=== PATIENT | male | born 2000 | race Caucasian/White ===

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

== ENCOUNTER 2020-05-08 15:41 | Emergency (ER) | payer SELFPAY ==
[2020-05-08 15:54] VITALS: BP 105/66; PULSE 57; RESP 18; TEMP 36.4; O2SAT 100
--- NOTE | 2020-05-08 16:14 | ED.EYEPROB ---
HPI - Eye Problem General Chief complaint: Eye Problems Stated complaint: left eye pain History of Present Illness HPI Narrative: This is a 19-year-old comes in complaining of left pain and swelling. According to patient he was mowing today earlier and he felt something in his eye started to rub his eye flushed his eye out at work. Patient states his eye continued to be irritated and to swell was not able to work the day out that he would go home and rest. Patient states that he woke up because his eye continue to swell was irritated and was hurting afraid that something may be in his eye. Related Data Allergies Allergy/AdvReac Type Severity Reaction Status Date / Time No Known Allergies Allergy Verified 05/08/20 15:58 Review of Systems Review of Systems: Narrative: CONSTITUTIONAL: Denies fever, chills, or sweats. EYES: Reports visual changes, redness, or discharge. ENT: Denies rhinorrhea, congestion, sore throat, or otalgia. CARDIOVASCULAR:Denies chest pain, palpitations, or edema. RESPIRATORY: Denies cough or dyspnea. GASTROINTESTINAL: Denies abdominal pain, nausea, vomiting, or diarrhea. GENITOURINARY: Denies dysuria or hematuria. SKIN:[Denies rash or itching. MUSCULOSKELETAL:Denies back pain, joint pain, or myalgia. NEUROLOGIC: Denies headache, numbness, or weakness. PSYCHIATRIC:Denies anxiety or depression PMFSH Past Medical History Medical History (Updated 05/08/20 @ 16:15 by Jacquelyn Castro NP) No significant past medical history Surgical History Surgical History (Updated 11/11/19 @ 19:[address]) No significant past surgical history Family History Family History (Updated 11/11/19 @ 19:[address]) Grandparent Diabetes mellitus Social History Social History (Updated 11/11/19 @ 19:[address]) Tobacco type: e-cigarettes/vaping Second hand tobacco smoke exposure: No Alcohol intake: current Substance use: current Substance use type: marijuana Gender identity (if verbalized by the patient): Male Comments At time as signature, I have reviewed and agree with nursing past medical, social, surgical and family history. Please see nursing chart for further information. There is no relevant family history pertinent to the presenting complaint. Exam Narrative: Exam Narrative: GENERAL:Well-appearing, well-nourished, and in no acute distress. HEAD:Normocephalic, atraumatic. EYES: PERRLA and EOMI. erythematous conjunctive swollen left eyelids bilaterally painful to touch with palpitation ENT: Nares clear, no rhinorrhea or epistaxis. Mucous membranes moist. NECK: Supple. CHEST: Clear to auscultation. No respiratory distress. HEART: Regular rate and rhythm. No murmur heard. Normal peripheral pulses. ABDOMEN: Soft, nontender, nondistended, normal active bowel sounds. EXTREMITIES: Normal range of motion. No edema. SKIN: Warm, dry, no rash. NEURO: No focal deficits. Alert and oriented x3. Course Vital Signs Vital signs: Vital Signs Temperature 97.5 F L 05/08/20 15:54 Pulse Rate 57 L 05/08/20 15:54 Respiratory Rate 18 05/08/20 15:54 Blood Pressure 105/66 05/08/20 15:54 Pulse Oximetry 100 05/08/20 15:54 Temperature 97.5 F L 05/08/20 15:54 Pulse Rate 57 L 05/08/20 15:54 Respiratory Rate 18 05/08/20 15:54 Blood Pressure 105/66 05/08/20 15:54 Pulse Oximetry 100 05/08/20 15:54 MDM - Eye Problem Differential Diagnosis Differential diagnosis: Likely corneal abrasion, conjunctivitis, acute iritis, periorbital cellulitis, subconjunctival hemorrhage and corneal ulcer Discharge Plan Discharge Clinical Impression: Corneal abrasion Qualifiers: Encounter type: initial encounter Laterality: left Qualified Code(s): S05.02XA - Injury of conjunctiva and corneal abrasion without foreign body, left eye, initial encounter Patient Disposition: Home, Self-Care Condition: Stable Instructions: Antibiotic Fo
== END 2020-05-08 16:20 | disposition home or self-care (01) ==
PROVIDERS: Emergency Provider Nurse Practitioner Family
DX: S05.02XA Injury of conjunctiva and corneal abrasion without foreign body, left eye, initial encounter (principal); X58.XXXA Exposure to other specified factors, initial encounter; F17.200 Nicotine dependence, unspecified, uncomplicated
CPT/HCPCS: 99213; A9270; G0463

== ENCOUNTER 2022-12-01 09:37 | Emergency (ER) | payer SELFPAY ==
[2022-12-01 09:55] VITALS: BP 134/78; PULSE 104; RESP 20; TEMP 37; O2SAT 100
--- NOTE | 2022-12-01 10:30 | PC.NURSE ---
Pt left without being seen, states he is no longer wanting to be seen due to the wait, states he will come back if things do not improve. Pt ambulated out in NAD, steady gait.
== END 2022-12-01 10:30 | disposition left against medical advice (07) ==
LOC: ANHED 10:35
DX: Z53.21 Procedure and treatment not carried out due to patient leaving prior to being seen by health care provider (principal)
CPT/HCPCS: 99199

== ENCOUNTER 2023-04-13 05:35 | Emergency (ER) | payer SELFPAY ==
[2023-04-13] VITALS (7 sets, daily range): BP systolic 128–132; BP diastolic 78–83; PULSE 73–101; RESP 10–25; TEMP 36.6; O2SAT 97–100
--- NOTE | 2023-04-13 07:32 | ED.GENADULT ---
HPI - General Adult General Chief complaint: Unspecified Stated complaint: withdrawling from fentanyl Time Seen by Provider: 04/13/23 07:32 Source: patient Related Data Allergies Allergy/AdvReac Type Severity Reaction Status Date / Time No Known Allergies Allergy Verified 04/13/23 07:06 [facility] Past Medical History Medical History (Updated 05/09/20 @ 00:00 by Paty Mahmood) No significant past medical history Surgical History Surgical History (Updated 11/11/19 @ 19:[address]) No significant past surgical history Family History Family History (Updated 11/11/19 @ 19:[address]) Grandparent Diabetes mellitus Social History Social History (Updated 11/11/19 @ 19:[address]) Tobacco type: e-cigarettes/vaping Second hand tobacco smoke exposure: No Alcohol intake: current Substance use: current Substance use type: marijuana Living arrangements: with family Occupation/Education: student Gender identity (if verbalized by the patient): Male Course Vital Signs Vital signs: Vital Signs Temperature 36.6 C 04/13/23 05:41 Pulse Rate 73 04/13/23 05:41 Respiratory Rate 16 04/13/23 05:41 Blood Pressure 128/78 04/13/23 05:41 Pulse Oximetry 100 04/13/23 05:41 Oxygen Delivery Room Air 04/13/23 05:41 Temperature 36.6 C 04/13/23 05:41 Pulse Rate 73 04/13/23 05:41 Respiratory Rate 16 04/13/23 05:41 Blood Pressure 128/78 04/13/23 05:41 Pulse Oximetry 100 04/13/23 05:41 Oxygen Delivery Room Air 04/13/23 05:41 Medical Decision Making Vital Signs Vital Signs: Vital Signs Temperature 36.6 C 04/13/23 05:41 Pulse Rate 73 04/13/23 05:41 Respiratory Rate 16 04/13/23 05:41 Blood Pressure 128/78 04/13/23 05:41 Pulse Oximetry 100 04/13/23 05:41 Oxygen Delivery Room Air 04/13/23 05:41 Temperature 36.6 C 04/13/23 05:41 Pulse Rate 73 04/13/23 05:41 Respiratory Rate 16 04/13/23 05:41 Blood Pressure 128/78 04/13/23 05:41 Pulse Oximetry 100 04/13/23 05:41 Oxygen Delivery Room Air 04/13/23 05:41 Discharge Plan Discharge Prescriptions: No Action erythromycin 5 mg/gram (0.5 %) ointment 0.5 inch EACH EYE TID 7 Days Qty: 3.5 0RF Follow-up/Referrals: PHYSICIAN,[employer] [Primary Care Provider] -
[2023-04-13 07:56] LABS: Basophils Percent Auto 0.4 % (0.2-1.2); Eosinophils Percent Auto 0.2 % (0-4.4); Hematocrit 44.3 % (42.0-52.0); Hemoglobin 14.3 g/dL (14.0-18.0); Immature Granulocyte Absolute 0.02 K/mm3 (0.00-0.031); Immature Granulocyte Percent A 0.2 % (0-0.5); Lymphocytes Absolute Auto 1.21 K/mm3 (0.9-3.2); Lymphocytes Percent Auto 13.5 % (18.3-44.2); Mean Corpuscular HGB Conc 32.3 g/dl (32-36); Mean Corpuscular Volume 80.4 fl (80-100); Mean Platelet Volume 9.9 fl (7.4-10.4); Monocytes Absolute Auto 0.3 K/mm3 (0.1-0.6); Monocytes Percent Auto 3.6 % (2.6-8.5); Neutrophils Absolute Auto 7.4 K/mm3 (1.3-6.7); Neutrophils Percent Auto 82.1 % (45.5-73.1); Nucleated Red Blood Cells Perc 0.4 % (0.0-0.2); Platelet Count Result 194 k/mm3 (150-375); Red Blood Count 5.51 M/mm3 (4.6-6.20); Red Cell Distribution Width 13.4 % (11.5-14.5)
[2023-04-13] MEDS: LORazepam INJ (*CRX) 2 MG/ML VIAL 1 MG IV PUSH (08:04)
[2023-04-13 08:13] LABS: Amphetamine Screen Urine Negative (Negative); Barbiturate Screen Urine Negative (Negative); Benzodiazepines Screen Urine Negative (Negative); Cannabinoid Screen Urine Positive (Negative); Cocaine Screen Urine Negative (Negative); Methadone Screen Urine Negative (Negative); Opiate Screen Urine Negative (Negative); Phencyclidine Screen Urine Negative (Negative)
[2023-04-13 08:15] LABS: Alanine Aminotransferase 15 U/L (6-50); Alkaline Phosphatase 90 U/L (38-126); Anion Gap 9 mmol/L (8-16); Aspartate Amino Transferase 21 U/L (17-59); Bilirubin,Total 0.5 mg/dL (0.2-1.3); Blood Urea Nitrogen 8 mg/dL (9-20); Calcium 9.7 mg/dL (8.4-10.2); Carbon Dioxide 26 mmol/L (22-30); Chloride 102 mmol/L (98-107); Estimated CRCL calculation 118 ml/min; Estimated Glomerular Filt Rate > 60; Glucose 135 mg/dL (65-110); Potassium 3.9 mmol/L (3.4-5.0); Sodium 137 mmol/L (137-145)
== END 2023-04-13 08:25 | disposition left against medical advice (07) ==
PROVIDERS: Emergency Provider Emergency Medicine
DX: F11.23 Opioid dependence with withdrawal (principal)
CPT/HCPCS: 36415; 80053; 80307; 85025; 96374; 99199; 99284; J2060

== ENCOUNTER 2023-09-30 19:31 | Emergency (ER) | payer OTHER, SELFPAY ==
[2023-09-30 19:38] VITALS: BP 138/80; PULSE 106; RESP 14; TEMP 36.8; O2SAT 100
--- NOTE | 2023-09-30 19:40 | ED.DENTAL ---
HPI - Dental/Oral General Chief complaint: Dental/Oral Stated complaint: Dental Pain Source: patient, RN notes reviewed and old records reviewed Mode of arrival: ambulatory Limitations: no limitations History of Present Illness HPI Narrative: 22-year-old male patient presents to [facility] with complaints with complaint right lower jaw dental pain started 2 days ago. Patient states has had in the past to amoxicillin and cleared up. Patient does not have symptoms. MD Complaint: tooth pain Location: Tooth # (32) Onset (ago): day(s) (2) Related Data Allergies Allergy/AdvReac Type Severity Reaction Status Date / Time No Known Allergies Allergy Verified 09/30/23 19:41 Review of Systems Constitutional: Constitutional: Reports no additional constitutional complaints, Denies body ache(s), Denies chills, Denies fatigue, Denies fever(s) and Denies headache(s) Eyes: Eyes: Reports no additional eye complaints and Denies blurry vision ENT: Reports system reviewed and no additional complaints, except as documented, Reports dental pain, Denies vertigo, Denies dizziness, Denies ear discharge, Denies otalgia, Denies facial pain, Denies headache(s), Denies nasal congestion, Denies nasal discharge, Denies sinus pain, Denies sinus pressure and Denies sore throat Cardiovascular: Cardiovascular: Reports no additional cardiovascular complaints, Denies chest pain, Denies chest pain at rest, Denies rapid heart rate and Denies dyspnea Respiratory: Respiratory: Reports no additional respiratory complaints, Denies chest congestion, Denies cough, Denies pain on inspiration, Denies pain with cough and Denies dyspnea Gastrointestinal: Gastrointestinal: Denies abdominal pain, Denies diarrhea, Denies nausea and Denies vomiting Integumentary/Breasts: Skin/Breast: Denies rash Neurologic: Reports system reviewed and no additional complaints, except as documented, Denies vertigo, Denies dizziness and Denies headache(s) Endocrine: Endocrine: Denies fatigue PMFSH Past Medical History Medical History No significant past medical history Surgical History Surgical History No significant past surgical history Family History Family History Grandparent Diabetes mellitus Social History Social History Tobacco type: e-cigarettes/vaping Second hand tobacco smoke exposure: No Alcohol intake: current Substance use: current Substance use type: marijuana Living arrangements: with family Occupation/Education: student Gender identity (if verbalized by the patient): Male Comments At the time of my signature, I reviewed and agree with the nursing past medical, surgical, social, and family history. There is no relevant family history pertinent to the patient complaint. Exam Const: General: cooperative, healthy appearing, no acute distress and well nourished Nutritional Appearance: well nourished Orientation/consciousness: patient oriented x3 Limitations: no limitations HENMT: Head: normal to inspection and normocephalic Ears: external ears normal, TM's normal bilaterally, mastoids normal and Abnormal EAC present Face/Nose/Sinus: normal facial exam Face and sinus: normal facial exam Mouth: Yes Normal oral and palatal mucosa present, Yes oropharynx normal and Yes moist mucous membranes Teeth and gingiva: abnormal tooth and associated gingiva, caries, gingiva abnormal edematous, tender and discolored and poor dentition Teeth image: 1. Tooth number 32 broken, decayed with gingival swelling around tooth Throat: tonsils normal, uvula midline and no uvular edema Eyes: General: appearance normal, both eyes and all related structures Sclera: sclerae normal Pupils: Equal, round and reactive pupils present Resp: Effort &
== END 2023-09-30 19:48 | disposition home or self-care (01) ==
PROVIDERS: Emergency Provider Registered Nurse
DX: K04.7 Periapical abscess without sinus (principal); F17.290 Nicotine dependence, other tobacco product, uncomplicated
CPT/HCPCS: 99213; G0463

== ENCOUNTER 2025-03-04 19:00 | Emergency (ER) | payer OTHER, SELFPAY ==
--- NOTE | 2025-03-04 19:01 | ED_ITS ---
HPI - Ear Problem General Chief complaint: Ear Stated complaint: left ear pain Time Seen by Provider: 03/04/25 19:01 Source: patient Mode of arrival: ambulatory Limitations: no limitations History of Present Illness HPI Narrative: Otoniel is a 24 yo male patient presenting to the clinic today with c/o left ear pain x1 week. He reports he has an excoriated area to the outside of his left ear canal and it begins swelling today. No fevers, chills, body aches. No recent swimming. Has not taken any medications to treat his symptoms. Related Data Allergies Allergy/AdvReac Type Severity Reaction Status Date / Time No Known Allergies Allergy Verified 03/04/25 19:01 Review of Systems Review of Systems: Pertinent positives per HPI. Patient denies any fever, chills, rash, headache, visual changes, dizziness, cough, shortness of breath, chest pain, palpitations, nausea, vomiting, diarrhea, constipation, abdominal pain, or any urinary issues. PMFSH Past Medical History Medical History No significant past medical history Surgical History Surgical History No significant past surgical history Family History Family History Grandparent Diabetes mellitus Social History Social History Tobacco type: e-cigarettes/vaping Second hand tobacco smoke exposure: No Alcohol intake: current Substance use: current Substance use type: marijuana Living arrangements: with family Occupation/Education: student Gender identity (if verbalized by the patient): Male Comments At the time of my signature, I reviewed and agree with the nursing past medical, surgical, social, and family history. There is no relevant family history pertinent to the patient complaint. Exam Narrative: General: Well-developed, well nourished, in no apparent distress Head: Normocephalic, atraumatic Eyes: Pupils equally round and reactive to light bilaterally, EOM intact, sclera and conjunctive clear, no discharge, lids normal Ears: TMs intact and clear, ear canals clear, redness, mild swelling, and excoriation to the left outer external ear canal, tender to palpation over this area, no drainage, grossly hearing normal. Nose: Nares patent, no discharge, no inflammation, no sinus tenderness. Mouth: Oral pharynx without lesions or masses, good dentition, MMM. Neck: Supple, trachea midline, no enlargement of anterior or posterior cervical nodes, no thyroid masses or goiter palpable. Cardio: Regular rate and rhythm, s1 and s2 normal, no murmur appreciated. Resp: Clear to auscultation bilaterally, no rhonchi, rales, wheezing or rubs Course Course Emergency Course: Portions of this record may have been created with voice recognition software. Level of Care: Express Care Visit Vital Signs Vital signs: Vital signs reviewed Medical Decision Making MDM Narrative Medical decision making narrative: At the time of visit patient is resting comfortably on the exam table. Patient appears to be nontoxic. Plan: I suspect patient has a left external ear skin infection. Prescription for Cohen cream was sent to the pharmacy. Supportive measures were discussed with the patient and they voiced understanding discharge instructions and agrees to treatment plan. Return precautions reviewed Differential Diagnosis Differential Diagnosis: Otitis media, otitis externa, eustachian tube dysfunction, cerumen impaction, upper respiratory infection, serous otitis, Discharge Plan Discharge Clinical Impression: Acute infection of external ear Qualifiers: Laterality: left Qualified Code(s): H60.392 - Other infective otitis externa, left ear Patient Disposition: Home Condition: Stable Instructions: Antibiotic Form, Earache (ED) Additional Instructions: Take any prescribed medications only as directed-mupirocin Tylenol/motrin as needed for pain May use heating pad to alleviate pain If you get recurrent ear infections it may be warranted to follow up with ENT. Follow up with your PCP in 3-5 days if symptoms persist. Patient Language: Libyan Prescriptions: New mupirocin [Centany] 2 % ointment 1 applic topical BID 7 Days Qty: 22 0RF Follow-up/Referrals: UNKNOWN,DOCTOR [Non-Staff] - Time of Disposition: 19:11 Quality NIHSS Nursing Documentation ED NIHSS nursing documentation: reviewed/agree
[2025-03-04 19:05] VITALS: BP 134/84; PULSE 93; RESP 14; TEMP 36.6; O2SAT 100
== END 2025-03-04 19:12 | disposition home or self-care (01) ==
PROVIDERS: Emergency Provider Nurse Practitioner Family
DX: H60.392 Other infective otitis externa, left ear (principal); F17.290 Nicotine dependence, other tobacco product, uncomplicated
CPT/HCPCS: 99213; G0463